=== PATIENT | female | born 1995 | race Caucasian/White ===

== ENCOUNTER 2016-04-03 20:24 | Emergency (ER) | payer OTHER ==
--- NOTE | 2016-04-03 23:03 | ED ORDER SUMMARY ---
..... Patient: AV MACIAS R OrderSheet [facility] VisitID: [id number] [place] [address] 20y, F Registration Date/Time: 04/03/2016 ORDER SHEET Weight: 78.4 kg (stated) Allergies: Unknown GENERAL ORDERS: UA-Culture if indicated Urgent (21:09 04/03/2016 EKoroleva P.A.-C) (Ack 21:18 NHouse ER Tech1) (23:16 AMcQuoid ER Tech1) Pelvic Exam Setup (21:09 04/03/2016 EKoroleva P.A.-C) (21:22 oberrobert R.N.) Serum Quantitative Urgent (21:13 04/03/2016 EKoroleva P.A.-C) (Ack 21:18 NHouse ER Tech1) (21:39 NHouse ER Tech1) US OB 1st Trimester w Transvag (02/11) Urgent (21:13 04/03/2016 EKoroleva P.A.-C) (Ack 21:19 NHouse ER Tech1) (22:21 NHouse ER Tech1) Wet Prep (Cervix) (c) Urgent (21:23 04/03/2016 EKoroleva P.A.-C) (Ack 21:25 NHouse ER Tech1) (21:53 NHouse ER Tech1) CBC w Diff Urgent (21:23 04/03/2016 EKoroleva P.A.-C) (Ack 21:25 NHouse ER Tech1) (21:39 NHouse ER Tech1) MEDICATION ORDERS: IV FLUIDS: ORDER SHEET NOTES: [Electronically signed by Paris Zurita R.N. (23:29 04/03/2016)] [Electronically signed by Elisabeth Rush.A.-C (14:07 04/04/2016)] [Electronically locked/signed by Paris Zurita R.N. (23:29 04/03/2016)]
--- NOTE | 2016-04-03 23:03 | ED CLINICAL REPORT ---
Clinical Report - Physicians/Mid Levels [facility] [address] [place] [address] 04/03/2016 20:26 Patient: AV MACIAS Time Seen: 2104. Arrived- By private vehicle. Historian- patient (SO). HISTORY OF PRESENT ILLNESS Chief Complaint: PELVIC PAIN. 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 The symptoms are described as mild. No pelvic pain or vaginal pain. (, confirm test with prior visit to [place], the time was early, as it was late in February 2016, Patient attempted to follow up with her primary care provider, however her primary does not see OB patients. Patient has had no vaginal bleeding, continues to have cramping off-and-on, anterior and posterior lum No new trauma. Denies urgency or frequency. Denies any discharge. Denies any vaginal bleeding. Denies ANY SYNCOPE< denies le swelling>). Similar symptoms previously: Recent medical care: The patient was seen recently in the emergency department (late february 2016). REVIEW OF SYSTEMS No vomiting or black stools. All systems otherwise negative, except as recorded above. PAST HISTORY ( SH: never smoke, no etoh, no drug use). Problems: . Additional Surgeries: no known surgeries. Medications: Unable to Obtain. None. Allergies: Unknown. ADDITIONAL NOTES The nursing notes have been reviewed. PHYSICAL EXAM Vital Signs: 04/03/2016 21:02 BP: 106/60. HR: 82. RR: 15. O2 saturation: 100%. Temp: 98.1 F. Appearance: Alert. HEENT: Normal external inspection. CVS: Heart sounds normal. Respiratory: No respiratory distress. Breath sounds normal. Abdomen: Soft and nontender. Gravid uterus palpable to just above pubic symphysis. Bowel sounds normal. No rebound tenderness or mass present. Back: Normal external inspection. No CVA tenderness. : Speculum and bimanual exam performed. External inspection normal. Speculum exam normal. No cervical dilation. No cervicitis. Bimanual exam normal. No tenderness with movement of the cervix. (chaperoned exam with RN). Skin: Skin warm. No rash. LABS, X-RAYS, AND EKG Pelvic Sonogram: IMPRESSION: 1. Early viable intrauterine at 8.0 weeks menstrual age (plus or minus 1 week). LAVERN is 11/14/2016. Electronically Final signed by:German Jhaveri MD 04/03/2016 11:56:00 PM. Laboratory Tests: UA-Culture if indicated: (WINIFRED: 04/03/2016 22:40) ( [facility] 04/03/2016 22:57) Final results Test Result Flag Units (Reference) URINE COLOR YELLOW URINE APPEARANCE CLEAR URINE GLUCOSE NEGATIVE (NEGATIVE) URINE BILIRUBIN NEGATIVE (NEGATIVE) URINE KETONE 2+ (NEGATIVE) URINE SPECIFIC GRAVITY >= 1.030 (1.010-1.030) URINE PH 6.0 (5.0-8.0) URINE PROTEIN NEGATIVE (NEGATIVE) URINE UROBILINOGEN 0.2 EU/dL (0.2-1.0) URINE NITRITE NEGATIVE (NEGATIVE) URINE BLOOD NEGATIVE (NEGATIVE) URINE LEUK ESTERASE NEGATIVE (NEGATIVE) URINE RBC 0-1 rbc/hpf (0-1) URINE WBC 0-1 wbc/hpf (0-1) URINE EPITHELIAL CELLS 1-3 EPI/hpf (0-5) URINE BACTERIA NONE SEEN (NONE SEEN) URINE COMMENT CULT NOT INDICATED 2+ MUCUSURINE CULTURES ARE SET-UP BASED ON THE FOLLOWING CRITERIA:POSITIVE NITRITEPOSITIVE LEUKOCYTE ESTERASEGREATER THAN 10 WHITE BLOOD CELLSMODERATE (2+) OR GREATER BACTERIA CBC w Diff: (WINIFRED: 04/03/2016 21:38) ( [facility] [place] 21:51) Final results Test Result Flag Units (Reference) WHITE BLOOD COUNT 10.3 K/uL (4.5-11.5) RED BLOOD COUNT 4.46 M/uL (4.00-5.20) HEMOGLOBIN 12.9 gm/dL (12.0-16.0) HEMATOCRIT 39.2 % (36.0-46.0) MEAN CELL VOLUME 88 fL (80-100) MEAN CORPUSCULAR HGB 29 pg (26-34) MEAN CORPUSCULAR HGB CONC 33 g/dL (31-37) RED CELL DISTRIBUTION WIDTH 13.3 % (11.6-14.8) PLATELET COUNT 255 K/uL (150-400) NEUTROPHIL % 64.6 % (50-75) LYMPH % 25.5 % (25-40) MONO % 9.4 % (3-14) EOSINOPHIL % 0.4 % (0-4) BASOPHIL % 0.1 % (0-2) Serum Quantitative: (WINIFRED: 04/03/2016 21:38) ( [facility] 04/03/2016 22:26) Final results Test Result Flag Units (Reference) BETA HCG, QUANTITATIVE 492456 mIU/mL REFERENCE RANGE:Adult Males: <2 mIU/mLNon- Females: <6 mIU/mL Females:Approximate Approximate hCGGestational Age Range (mIU/mL) 0-1 week 0-501-2 weeks 40-3002-3 weeks 100-05583-4 weeks 500-23540-9 months 5,000-200,0002-3 months 10,000-100,0002nd trimester 3,000-50,0003rd trimester 1,000-50,000 Wet Prep: (WINIFRED: 04/03/2016 21:20) ( [facility] 04/03/2016 21:37) Final results SPECIMEN DESCRIPTION: C Test Result Flag Units (Reference) WET MOUNT CLUE CELLS:: NONE EPITHELIAL CELLS: MODERATE -- SOURCE?: CERVIX WHITE BLOOD CELLS: MODERATE TRICHOMONAS:: NONE -- YEAST:: NONE . PROGRESS AND PROCEDURES Course of Care: Chaperoned gu exam with GOVIND (RN) at this time patient with no signs of infectious process, pain really since over the last 2 months. No vaginal bleeding. No peritoneal signs or guarding. Appropriate hCG, this patient needs to choose her OB for follow-up. No acute emergent abdominal systemic processes noted. No urinary symptoms or signs of infectious process. Patient stable. Ultrasound with 8 week IUP plus or minus one week. 04/03/2016 21:02 BP: 106/60. HR: 82. RR: 15. O2 saturation: 100%. Temp: 98.1 F. Patient is stable. Symptoms better. Patient/family counseled. Disposition: Discharged. CLINICAL IMPRESSION First trimester discomforts of include low back pain. Positive test in the emergency department. INSTRUCTIONS (your labs look great). Warnings: Further evaluation is necessary. Prescription Medications: Zofran (orally disintegrating tablets) 4 mg: take 1 orally every 6 hours for 3 days as needed for nausea. Dispense ten (10). No refill. Substitution is permissible. Follow-up with: David Fair MD, Obstetrics/Gynecology, , [facility], [address] [place] [address] Follow up. Call for the next available appointment. (Electronically signed by Elisabeth Rush P.A.-C 04/04/2016 14:07)
--- NOTE | 2016-04-03 23:03 | ED NURSING NOTES ---
Clinical Report - Nurses [facility] [address] [place] [address] 04/03/2016 20:26 Patient: AV MACIAS TRIAGE Triage time 21:03. Acuity: LEVEL 3. Chief Complaint: ABDOMINAL PAIN and CRAMPS and VAGINAL FLUID LEAKAGE. --21: Nato Faye R.N. 21:02 04/03/16. BP: 106/60. HR: 82. RR: 15. O2 saturation: 100%. Temp: 98.1 F. Pain level now 6/10. --21: Nato Faye R.N. Weight: 78.4 kg stated. Height/Length: 64 inches Per Patient. BMI: 29.7. --21: Nato Faye R.N. Medications None. --21: Nato Faye R.N. Unable to Obtain. --23: Paris Zurita R.N. Medication/allergy information source: the patient. --21: Nato Faye R.N. Allergies Unknown. --23:28 Paris Zurita R.N. History Arrived by private vehicle. Historian: patient. Accompanied by friend. Primary physician (none). This started just prior to arrival. ( Pt came in with lower pelvic pain 6/10 and sharp. Pt is 8 weeks preg. pt is having thin clear vaginal discharge, but no bleeding. Denies any pain on urination. Pt has no OB doc. Pt was seen at [facility] in Feb and was told about being preg.). Treatment PHOTOCOPYING EQUIPMENT MECHANIC: None. PAST MEDICAL HX: Currently . G 0. P 0. Ab 0. SURGERY HX: No history of previous surgery. SOCIAL HX: Never smoker. No alcohol use or drug use. --21: Nato Faye R.N. ADDITIONAL SURGERIES: no known surgeries. Interventions ID band on patient. To treatment room. --21: Nato Faye R.N. NURSING PROGRESS NOTES Patient gowned. Two patient identifiers checked. Call light placed in reach. Side rails up x 1. Bed placed in lowest position. ( Pt was given 2 warm blankets for the pelvic set up. Pt is in a gown.). --21:11 Nato Faye R.N. 21:25 04/03/16. PELVIC EXAM: Pelvic exam performed by ED physician. Assisted by one nurse. Preparation: pelvic tray; patient placed in lithotomy position. Procedure: speculum and bimanual exam. Few genital lesions noted. Moderate amount of vaginal discharge noted. Specimens collected and sent to lab: wet prep. Status post-procedure: she was stable. Total time of assist / procedure: 15 minutes. --21:25 Corinna Duran R.N. Care transferred and report given (CAILIN Guzman). --22:35 Corinna Duran R.N. DISPOSITION / DISCHARGE 23:27 04/03/16. Condition at departure: improved and stable. The goals identified in the patient's plan of care were met. No learning barriers present. Reviewed medication(s) side effects, precautions, dosing and course information. Prescription(s) given to the patient. Reviewed referral to an milk vendor and a guitar teacher for followup. Patient verbalized understanding. Written instructions provided in Haitian. The patient was discharged home and accompanied by acid operator. She left the Emergency Department ambulatory and via private vehicle. Exceptional Children Teacher driving. FALL RISK ASSESSMENT: Fall risk assessment completed. No fall risk identified. --23:27 Paris Zurita R.N. 23:27 04/03/16. BP: 95/58. HR: 74. RR: 16. O2 saturation: 100%. Temp: 98.1 F. --23:27 Paris Zurita R.N. Departure time: 23:Apr 03 2016. --23:27 Paris Zurita R.N. Locked/Released at 04/03/2016 23:29 by Paris Zurita R.N.
--- NOTE | 2016-04-03 23:03 | ED ORDER SUMMARY ---
..... Patient: AV MACIAS R OrderSheet [facility] VisitID: [id number] [place] [address] 20y, F Registration Date/Time: 04/03/2016 ORDER SHEET Weight: 78.4 kg (stated) Allergies: Unknown GENERAL ORDERS: UA-Culture if indicated Urgent (21:09 04/03/2016 EKoroleva P.A.-C) (Ack 21:18 NHouse ER Tech1) (23:16 AMcQuoid ER Tech1) Pelvic Exam Setup (21:09 04/03/2016 EKoroleva P.A.-C) (21:22 oberrobert R.N.) Serum Quantitative Urgent (21:13 04/03/2016 EKoroleva P.A.-C) (Ack 21:18 NHouse ER Tech1) (21:39 NHouse ER Tech1) US OB 1st Trimester w Transvag (02/11) Urgent (21:13 04/03/2016 EKoroleva P.A.-C) (Ack 21:19 NHouse ER Tech1) (22:21 NHouse ER Tech1) Wet Prep (Cervix) (c) Urgent (21:23 04/03/2016 EKoroleva P.A.-C) (Ack 21:25 NHouse ER Tech1) (21:53 NHouse ER Tech1) CBC w Diff Urgent (21:23 04/03/2016 EKoroleva P.A.-C) (Ack 21:25 NHouse ER Tech1) (21:39 NHouse ER Tech1) MEDICATION ORDERS: IV FLUIDS: ORDER SHEET NOTES: [Electronically signed by Paris Zurita R.N. (23:29 04/03/2016)] [Electronically signed by Elisabeth Rush.A.-C (14:07 04/04/2016)] [Electronically locked/signed by Paris Zurita R.N. (23:29 04/03/2016)]
--- NOTE | 2016-04-03 23:03 | ED NURSING NOTES ---
Clinical Report - Nurses [facility] [address] [place] [address] 04/03/2016 20:26 Patient: AV MACIAS TRIAGE Triage time 21:03. Acuity: LEVEL 3. Chief Complaint: ABDOMINAL PAIN and CRAMPS and VAGINAL FLUID LEAKAGE. --21: Nato Faye R.N. 21:02 04/03/16. BP: 106/60. HR: 82. RR: 15. O2 saturation: 100%. Temp: 98.1 F. Pain level now 6/10. --21: Nato Faye R.N. Weight: 78.4 kg stated. Height/Length: 64 inches Per Patient. BMI: 29.7. --21: Nato Faye R.N. Medications None. --21: Nato Faye R.N. Unable to Obtain. --23: Paris Zurita R.N. Medication/allergy information source: the patient. --21: Nato Faye R.N. Allergies Unknown. --23:28 Paris Zuirta R.N. History Arrived by private vehicle. Historian: patient. Accompanied by friend. Primary physician (none). This started just prior to arrival. ( Pt came in with lower pelvic pain 6/10 and sharp. Pt is 8 weeks preg. pt is having thin clear vaginal discharge, but no bleeding. Denies any pain on urination. Pt has no OB doc. Pt was seen at [facility] in Feb and was told about being preg.). Treatment COAL CRUSHER OPERATOR: None. PAST MEDICAL HX: Currently . G 0. P 0. Ab 0. SURGERY HX: No history of previous surgery. SOCIAL HX: Never smoker. No alcohol use or drug use. --21: Nato Faye R.N. ADDITIONAL SURGERIES: no known surgeries. Interventions ID band on patient. To treatment room. --21: Nato Faye R.N. NURSING PROGRESS NOTES Patient gowned. Two patient identifiers checked. Call light placed in reach. Side rails up x 1. Bed placed in lowest position. ( Pt was given 2 warm blankets for the pelvic set up. Pt is in a gown.). --21:11 Nato Faye R.N. 21:25 04/03/16. PELVIC EXAM: Pelvic exam performed by ED physician. Assisted by one nurse. Preparation: pelvic tray; patient placed in lithotomy position. Procedure: speculum and bimanual exam. Few genital lesions noted. Moderate amount of vaginal discharge noted. Specimens collected and sent to lab: wet prep. Status post-procedure: she was stable. Total time of assist / procedure: 15 minutes. --21:25 Corinna Duran R.N. Care transferred and report given (CAILIN Guzman). --22:35 Corinna Duran R.N. DISPOSITION / DISCHARGE 23:27 04/03/16. Condition at departure: improved and stable. The goals identified in the patient's plan of care were met. No learning barriers present. Reviewed medication(s) side effects, precautions, dosing and course information. Prescription(s) given to the patient. Reviewed referral to an associate loan officer and a molder floor for followup. Patient verbalized understanding. Written instructions provided in Kenyan. The patient was discharged home and accompanied by chemist pharmaceutical. She left the Emergency Department ambulatory and via private vehicle. Operating Room Aide driving. FALL RISK ASSESSMENT: Fall risk assessment completed. No fall risk identified. --23:27 Paris Zurita R.N. 23:27 04/03/16. BP: 95/58. HR: 74. RR: 16. O2 saturation: 100%. Temp: 98.1 F. --23:27 Paris Zurita R.N. Departure time: 23:Apr 03 2016. --23:27 Paris Zurita R.N. Locked/Released at 04/03/2016 23:29 by Paris Zurita R.N.
--- NOTE | 2016-04-03 23:03 | ED CLINICAL REPORT ---
Clinical Report - Physicians/Mid Levels [facility] [address] [place] [address] 04/03/2016 20:26 Patient: AV MACIAS Time Seen: 2104. Arrived- By private vehicle. Historian- patient (SO). HISTORY OF PRESENT ILLNESS Chief Complaint: PELVIC PAIN. 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 The symptoms are described as mild. No pelvic pain or vaginal pain. (, confirm test with prior visit to [place], the time was early, as it was late in February 2016, Patient attempted to follow up with her primary care provider, however her primary does not see OB patients. Patient has had no vaginal bleeding, continues to have cramping off-and-on, anterior and posterior lum No new trauma. Denies urgency or frequency. Denies any discharge. Denies any vaginal bleeding. Denies ANY SYNCOPE< denies le swelling>). Similar symptoms previously: Recent medical care: The patient was seen recently in the emergency department (late february 2016). REVIEW OF SYSTEMS No vomiting or black stools. All systems otherwise negative, except as recorded above. PAST HISTORY ( SH: never smoke, no etoh, no drug use). Problems: . Additional Surgeries: no known surgeries. Medications: Unable to Obtain. None. Allergies: Unknown. ADDITIONAL NOTES The nursing notes have been reviewed. PHYSICAL EXAM Vital Signs: 04/03/2016 21:02 BP: 106/60. HR: 82. RR: 15. O2 saturation: 100%. Temp: 98.1 F. Appearance: Alert. HEENT: Normal external inspection. CVS: Heart sounds normal. Respiratory: No respiratory distress. Breath sounds normal. Abdomen: Soft and nontender. Gravid uterus palpable to just above pubic symphysis. Bowel sounds normal. No rebound tenderness or mass present. Back: Normal external inspection. No CVA tenderness. : Speculum and bimanual exam performed. External inspection normal. Speculum exam normal. No cervical dilation. No cervicitis. Bimanual exam normal. No tenderness with movement of the cervix. (chaperoned exam with RN). Skin: Skin warm. No rash. LABS, X-RAYS, AND EKG Pelvic Sonogram: IMPRESSION: 1. Early viable intrauterine at 8.0 weeks menstrual age (plus or minus 1 week). LAVERN is 11/14/2016. Electronically Final signed by:German Jhaveri MD 04/03/2016 11:56:00 PM. Laboratory Tests: UA-Culture if indicated: (WINIFRED: 04/03/2016 22:40) ( [facility] [place] [place] 04/03/2016 22:57) Final results Test Result Flag Units (Reference) URINE COLOR YELLOW URINE APPEARANCE CLEAR URINE GLUCOSE NEGATIVE (NEGATIVE) URINE BILIRUBIN NEGATIVE (NEGATIVE) URINE KETONE 2+ (NEGATIVE) URINE SPECIFIC GRAVITY >= 1.030 (1.010-1.030) URINE PH 6.0 (5.0-8.0) URINE PROTEIN NEGATIVE (NEGATIVE) URINE UROBILINOGEN 0.2 EU/dL (0.2-1.0) URINE NITRITE NEGATIVE (NEGATIVE) URINE BLOOD NEGATIVE (NEGATIVE) URINE LEUK ESTERASE NEGATIVE (NEGATIVE) URINE RBC 0-1 rbc/hpf (0-1) URINE WBC 0-1 wbc/hpf (0-1) URINE EPITHELIAL CELLS 1-3 EPI/hpf (0-5) URINE BACTERIA NONE SEEN (NONE SEEN) URINE COMMENT CULT NOT INDICATED 2+ MUCUSURINE CULTURES ARE SET-UP BASED ON THE FOLLOWING CRITERIA:POSITIVE NITRITEPOSITIVE LEUKOCYTE ESTERASEGREATER THAN 10 WHITE BLOOD CELLSMODERATE (2+) OR GREATER BACTERIA CBC w Diff: (WINIFRED: 04/03/2016 21:38) ( [facility] [place] [place] 04/03/2016 21:51) Final results Test Result Flag Units (Reference) WHITE BLOOD COUNT 10.3 K/uL (4.5-11.5) RED BLOOD COUNT 4.46 M/uL (4.00-5.20) HEMOGLOBIN 12.9 gm/dL (12.0-16.0) HEMATOCRIT 39.2 % (36.0-46.0) MEAN CELL VOLUME 88 fL (80-100) MEAN CORPUSCULAR HGB 29 pg (26-34) MEAN CORPUSCULAR HGB CONC 33 g/dL (31-37) RED CELL DISTRIBUTION WIDTH 13.3 % (11.6-14.8) PLATELET COUNT 255 K/uL (150-400) NEUTROPHIL % 64.6 % (50-75) LYMPH % 25.5 % (25-40) MONO % 9.4 % (3-14) EOSINOPHIL % 0.4 % (0-4) BASOPHIL % 0.1 % (0-2) Serum Quantitative: (WINIFRED: 04/03/2016 21:38) ( [facility] 04/03/2016 22:26) Final results Test Result Flag Units (Reference) BETA HCG, QUANTITATIVE 516244 mIU/mL REFERENCE RANGE:Adult Males: <2 mIU/mLNon- Females: <6 mIU/mL Females:Approximate Approximate hCGGestational Age Range (mIU/mL) 0-1 week 0-501-2 weeks 40-3002-3 weeks 100-52616-7 weeks 500-47873-7 months 5,000-200,0002-3 months 10,000-100,0002nd trimester 3,000-50,0003rd trimester 1,000-50,000 Wet Prep: (WINIFRED: 04/03/2016 21:20) ( [facility] 04/03/2016 21:37) Final results SPECIMEN DESCRIPTION: C Test Result Flag Units (Reference) WET MOUNT CLUE CELLS:: NONE EPITHELIAL CELLS: MODERATE -- SOURCE?: CERVIX WHITE BLOOD CELLS: MODERATE TRICHOMONAS:: NONE -- YEAST:: NONE . PROGRESS AND PROCEDURES Course of Care: Chaperoned gu exam with GOVIND (RN) at this time patient with no signs of infectious process, pain really since over the last 2 months. No vaginal bleeding. No peritoneal signs or guarding. Appropriate hCG, this patient needs to choose her OB for follow-up. No acute emergent abdominal systemic processes noted. No urinary symptoms or signs of infectious process. Patient stable. Ultrasound with 8 week IUP plus or minus one week. 04/03/2016 21:02 BP: 106/60. HR: 82. RR: 15. O2 saturation: 100%. Temp: 98.1 F. Patient is stable. Symptoms better. Patient/family counseled. Disposition: Discharged. CLINICAL IMPRESSION First trimester discomforts of include low back pain. Positive test in the emergency department. INSTRUCTIONS (your labs look great). Warnings: Further evaluation is necessary. Prescription Medications: Zofran (orally disintegrating tablets) 4 mg: take 1 orally every 6 hours for 3 days as needed for nausea. Dispense ten (10). No refill. Substitution is permissible. Follow-up with: David Fair MD, Obstetrics/Gynecology, , [facility], [address] [place] [address] Follow up. Call for the next available appointment. (Electronically signed by Elisabeth Rush P.A.-C 04/04/2016 14:07)
--- NOTE | 2016-04-03 23:57 | DIAGNOSTIC IMAGING REPORT ---
PROCEDURE: US OB 1ST TRIMESTER W/TRANSVAG INDICATION: PAIN TECHNIQUE: Knight scale, color, and spectral Doppler transabdominal and endovaginal sonographic images of the first trimester gravid uterus were obtained. COMPARISON: None. FINDINGS: TRANSABDOMINAL SCANS: There is early intrauterine gestational sac. TRANSVAGINAL SCANS: Early viable with cardiac activity (01/1961). Hernandez-rump length 1.6 cm (aunt 0.0 weeks). Normal fluid and cervix length. Placenta circumferential. IMPRESSION: 1. Early viable intrauterine at 8.0 weeks menstrual age (plus or minus 1 week). LAVERN is 11/14/2016.
--- NOTE | 2016-04-03 23:57 | DIAGNOSTIC IMAGING REPORT ---
PROCEDURE: US OB 1ST TRIMESTER W/TRANSVAG INDICATION: PAIN TECHNIQUE: Knight scale, color, and spectral Doppler transabdominal and endovaginal sonographic images of the first trimester gravid uterus were obtained. COMPARISON: None. FINDINGS: TRANSABDOMINAL SCANS: There is early intrauterine gestational sac. TRANSVAGINAL SCANS: Early viable with cardiac activity (01/1960). [place]-rump length 1.6 cm (aunt 0.0 weeks). Normal fluid and cervix length. Placenta circumferential. IMPRESSION: 1. Early viable intrauterine at 8.0 weeks menstrual age (plus or minus 1 week). LAVERN is 11/14/2016.
--- NOTE | 2016-04-04 14:08 | ED MAR SUMMARY ---
..... Medication Administration Record [facility] [address] [place], [place] [id number] Patient: AV MACIAS Visit ID: [id number] 20y, F Weight: 78.4 kg Height/Length: 64 in BMI: 29.7 ALLERGIES: Unknown
--- NOTE | 2016-04-04 14:08 | ED DISCHARGE INSTRUCTIONS ---
Patient: AV MACIAS General Instructions [facility] VisitID: [id number] [place] [address] 20y, F Registration Date/Time: 04/03/2016 First trimester discomforts of include low back pain. Positive test in the emergency department. INSTRUCTIONS (your labs look great). Warnings: Further evaluation is necessary. Prescription Medications: Zofran (orally disintegrating tablets) 4 mg: take 1 orally every 6 hours for 3 days as needed for nausea. Dispense ten (10). No refill. Substitution is permissible. Follow-up with: David Fair MD, Obstetrics/Gynecology, , [facility], [address] [place] [address] Follow up. Call for the next available appointment. ADDITIONAL INFORMATION Your exam today shows that you are . During , it is normal to develop tender swollen breasts, frequent urination and mild vaginal discharge. During the first three months, nausea is common. Guidelines For A Healthy : To ensure that your baby is born healthy there are certain things that you can do: When you feel tired, you should REST. This is especially true in the later months of . Your body needs more FLUIDS than you may be used to: You should drink 8-10 glasses of juice, milk or water. Eat well-balanced MEALS at regular intervals to supply your body with enough protein. You can expect a total weight gain of about 30 pounds during the . Do not try to diet or lose weight while you are . Because of the extra nutritional needs during , take one VITAMIN daily. Do not take any other MEDICINE during your (prescribed or [id number]) unless your doctor specifically recommends this. Many drugs can have harmful effects on the growing baby. If NAUSEA or VOMITING become a problem, avoid greasy and fried foods. Eat several smaller meals throughout the day rather than three large meals. If you SMOKE, you must stop. The nicotine you breathe in goes right to the baby. Stay away from ALCOHOL, even in moderate amounts. Daily drinking will harm your baby and can cause permanent brain damage. RECREATIONAL DRUGS are harmful, especially cocaine, crack, and heroin. Marijuana should also be avoided. If you were using recreational drugs or prescribed medicine when you found out that you were , talk to your doctor about possible effects on the fetus. Follow Up: Call to arrange for care. This can be provided by your family doctor, an customer service supervisor ( specialist) or a primary care clinic. Get Prompt Medical Attention if any of the following occur: Vaginal bleeding Moderate or severe abdominal or back pain Excessive vomiting, unable to keep any fluids down for six hours Burning with urination Headache, dizziness or rapid weight gain Ondansetron Hydrochloride Oral tablet What is this medicine? ONDANSETRON (on RACHELLE se latricia) is used to treat nausea and vomiting caused by chemotherapy. It is also used to prevent or treat nausea and vomiting after surgery. How should I use this medicine? Take this medicine by mouth with a glass of water. Follow the directions on your prescription label. Take your doses at regular intervals. Do not take your medicine more often than directed. Talk to your venereal disease investigator regarding the use of this medicine in children. Special care may be needed. What side effects may I notice from receiving this medicine? Side effects that you should report to your doctor or health managed care coordinator as soon as possible: allergic reactions like skin rash, itching or hives, swelling of the face, lips or tongue breathing problems dizziness fast or irregular heartbeat feeling faint or lightheaded, falls fever and chills swelling of the hands or feet tightness in the chest Side effects that usually do not require medical attention (report to your doctor or health managed care coordinator if they continue or are bothersome): constipation or diarrhea headache What may interact with this medicine? Do not take this medicine with any of the following medications: -apomorphine -cisapride -dofetilide -dronedarone -pimozide -thioridazine -ziprasidone This medicine may also interact with the following medications: -carbamazepine -phenytoin -rifampicin -tramadol -other medicines that prolong the QT interval (cause an abnormal heart rhythm) What if I miss a dose? If you miss a dose, take it as soon as you can. If it is almost time for your next dose, take only that dose. Do not take double or extra doses. Where should I keep my medicine? Keep out of the reach of children. Store between 2 and 30 degrees C (36 and 86 degrees F). Throw away any unused medicine after the expiration date. What should I tell my health care provider before I take this medicine? They need to know if you have any of these conditions: heart disease history of irregular heartbeat liver disease low levels of magnesium or potassium in the blood an unusual or allergic reaction to ondansetron, granisetron, other medicines, foods, dyes, or preservatives or trying to get breast-feeding What should I watch for while using this medicine? Check with your doctor or health managed care coordinator right away if you have any sign of an allergic reaction. You have been given the following additional information: , New Dx Ondansetron Hydrochloride Oral tablet (Electronically signed by Elisabeth Rush P.A.-C 04/04/2016 14:07)
--- NOTE | 2016-04-04 14:08 | ED DISCHARGE INSTRUCTIONS ---
Patient: AV MACIAS General Instructions [facility] VisitID: [id number] [place] [address] 20y, F Registration Date/Time: 04/03/2016 First trimester discomforts of include low back pain. Positive test in the emergency department. INSTRUCTIONS (your labs look great). Warnings: Further evaluation is necessary. Prescription Medications: Zofran (orally disintegrating tablets) 4 mg: take 1 orally every 6 hours for 3 days as needed for nausea. Dispense ten (10). No refill. Substitution is permissible. Follow-up with: David Fair MD, Obstetrics/Gynecology, , [facility], [address] [place] [address] Follow up. Call for the next available appointment. ADDITIONAL INFORMATION Your exam today shows that you are . During , it is normal to develop tender swollen breasts, frequent urination and mild vaginal discharge. During the first three months, nausea is common. Guidelines For A Healthy : To ensure that your baby is born healthy there are certain things that you can do: When you feel tired, you should REST. This is especially true in the later months of . Your body needs more FLUIDS than you may be used to: You should drink 8-10 glasses of juice, milk or water. Eat well-balanced MEALS at regular intervals to supply your body with enough protein. You can expect a total weight gain of about 30 pounds during the . Do not try to diet or lose weight while you are . Because of the extra nutritional needs during , take one VITAMIN daily. Do not take any other MEDICINE during your (prescribed or onwa-xov-[id number]) unless your doctor specifically recommends this. Many drugs can have harmful effects on the growing baby. If NAUSEA or VOMITING become a problem, avoid greasy and fried foods. Eat several smaller meals throughout the day rather than three large meals. If you SMOKE, you must stop. The nicotine you breathe in goes right to the baby. Stay away from ALCOHOL, even in moderate amounts. Daily drinking will harm your baby and can cause permanent brain damage. RECREATIONAL DRUGS are harmful, especially cocaine, crack, and heroin. Marijuana should also be avoided. If you were using recreational drugs or prescribed medicine when you found out that you were , talk to your doctor about possible effects on the fetus. Follow Up: Call to arrange for care. This can be provided by your family doctor, an building attendant ( specialist) or a primary care clinic. Get Prompt Medical Attention if any of the following occur: Vaginal bleeding Moderate or severe abdominal or back pain Excessive vomiting, unable to keep any fluids down for six hours Burning with urination Headache, dizziness or rapid weight gain Ondansetron Hydrochloride Oral tablet What is this medicine? ONDANSETRON (on RACHELLE se latricia) is used to treat nausea and vomiting caused by chemotherapy. It is also used to prevent or treat nausea and vomiting after surgery. How should I use this medicine? Take this medicine by mouth with a glass of water. Follow the directions on your prescription label. Take your doses at regular intervals. Do not take your medicine more often than directed. Talk to your uniform maker regarding the use of this medicine in children. Special care may be needed. What side effects may I notice from receiving this medicine? Side effects that you should report to your doctor or health student career development specialist as soon as possible: allergic reactions like skin rash, itching or hives, swelling of the face, lips or tongue breathing problems dizziness fast or irregular heartbeat feeling faint or lightheaded, falls fever and chills swelling of the hands or feet tightness in the chest Side effects that usually do not require medical attention (report to your doctor or health student career development specialist if they continue or are bothersome): constipation or diarrhea headache What may interact with this medicine? Do not take this medicine with any of the following medications: -apomorphine -cisapride -dofetilide -dronedarone -pimozide -thioridazine -ziprasidone This medicine may also interact with the following medications: -carbamazepine -phenytoin -rifampicin -tramadol -other medicines that prolong the QT interval (cause an abnormal heart rhythm) What if I miss a dose? If you miss a dose, take it as soon as you can. If it is almost time for your next dose, take only that dose. Do not take double or extra doses. Where should I keep my medicine? Keep out of the reach of children. Store between 2 and 30 degrees C (36 and 86 degrees F). Throw away any unused medicine after the expiration date. What should I tell my health care provider before I take this medicine? They need to know if you have any of these conditions: heart disease history of irregular heartbeat liver disease low levels of magnesium or potassium in the blood an unusual or allergic reaction to ondansetron, granisetron, other medicines, foods, dyes, or preservatives or trying to get breast-feeding What should I watch for while using this medicine? Check with your doctor or health student career development specialist right away if you have any sign of an allergic reaction. You have been given the following additional information: , New Dx Ondansetron Hydrochloride Oral tablet (Electronically signed by Elisabeth Rush P.A.-C 04/04/2016 14:07)
--- NOTE | 2016-04-04 14:08 | ED MED RECONCILIATION SUMMARY ---
Patient: AV MACIAS Medication Reconciliation Report [facility] VisitID: [id number] [address] [place] [address] 20y, F Registration Date/Time: 04/03/2016 Weight: 78.4 kg Height/Length: 64 in. BMI: 29.7 ALLERGIES: Unknown The patient's Home Medications are listed below: NONE. The source(s) of the original Home Medication information: patient The following Medications were given to the patient in the Emergency Department: None. The following Medications were prescribed to the patient: Zofran (orally disintegrating tablets) 4 mg: take 1 orally every 6 hours for 3 days as needed for nausea. Dispense ten (10). No refill. Substitution is permissible. -- Elisabeth Rush, PTwilaA.JudeC
--- NOTE | 2016-04-04 14:08 | ED MAR SUMMARY ---
..... Medication Administration Record [facility] [address] [place], [place] [id number] Patient: AV MACIAS Visit ID: [id number] 20y, F Weight: 78.4 kg Height/Length: 64 in BMI: 29.7 ALLERGIES: Unknown
--- NOTE | 2016-04-04 14:08 | ED MED RECONCILIATION SUMMARY ---
Patient: AV MACIAS Medication Reconciliation Report [facility] VisitID: [id number] [address] [place] [address] 20y, F Registration Date/Time: 04/03/2016 Weight: 78.4 kg Height/Length: 64 in. BMI: 29.7 ALLERGIES: Unknown The patient's Home Medications are listed below: NONE. The source(s) of the original Home Medication information: patient The following Medications were given to the patient in the Emergency Department: None. The following Medications were prescribed to the patient: Zofran (orally disintegrating tablets) 4 mg: take 1 orally every 6 hours for 3 days as needed for nausea. Dispense ten (10). No refill. Substitution is permissible. -- Elisabeth Rush, [email or web address].JudeC
== END 2016-04-03 23:25 | disposition home or self-care (01) ==
LOC: ED SRH 20:24
DX: O99.89 Other specified diseases and conditions complicating pregnancy, childbirth and the puerperium (principal); M54.5 Low back pain; Z3A.08 8 weeks gestation of pregnancy
CPT/HCPCS: 90004; 90074; 90195; 90197; 95059